=== PATIENT | female | born 1965 | race Caucasian/White ===

== ENCOUNTER 2025-05-14 13:44 | Emergency (ER) | payer BC, OTHER ==
[2025-05-14 16:24] LABS: Absolute Lymphocytes (CBC) 1.7 K/uL (0.7-4.9); Hematocrit 42.0 % (36.0-45.0); Hemoglobin 14.1 g/dL (12.0-15.0); MCH 28.9 pg (27.0-35.0); MCHC 33.5 g/dL (32.0-36.0); MCV 86.2 fL (80-100); MPV 8.2 fL (7.6-11.3); Nucleated RBC Absolute Count 0.0 (0-0); Nucleated Red Blood Cells % 0.0 % (0-0); RBC Red Blood Cell Count 4.88 M/uL (3.86-4.86); White Blood Count 7.20 thou/uL (4.3-10.9)
--- NOTE | 2025-05-14 16:35 | RAD REPORT ---
Extremity Venous Uni Ltd CLINICAL INDICATION: Female, 59 years old.PAIN TECHNIQUE: Complete duplex sonography of the lower extremity veins was performed of the affected limb . The examination included compression for vein patency, color Doppler imaging and flow augmentation in response to distal compression of the distal external iliac, common femoral, femoral, popliteal, peroneal, tibial and great saphenous veins. [id number]. COMPARISON: No prior exams FINDINGS: Duplex sonography imaging demonstrates all deep veins examined to be fully compressible with spontane ous, phasic and augmented flow in the affected limb. IMPRESSION: No evidence of deep venous thrombosis in the left lower extremity.
[2025-05-14 16:43] LABS: Anion Gap 8.2 mEq/L (5.0-15.0); BUN Blood Urea Nitrogen 21.0 mg/dL (7-18); Glucose Level 114.0 mg/dL (74-106); Potassium 4.2 mEq/L (3.5-5.1); Troponin High Sensitivity 3.1 pg/mL (<58.9)
[2025-05-14] MEDS ORDERED: NA CHLORIDE 0.9% 1,000 ML ONE (16:45)
--- NOTE | 2025-05-14 17:00 | RAD REPORT ---
EXAM: Chest Single View HISTORY: 59 years Female CHEST PAIN COMPARISON: No prior exams FINDINGS: LUNGS/PLEURA: The lungs are clear. No pleural effusions or pneumothorax. No pulmonary edema. CARDIAC/MEDIASTINUM: The cardiac silhouette is within normal limits. UPPER ABDOMEN: No significant abnormality. BONES: No acute abnormality. LINES/TUBES/OTHER: N/A IMPRESSION: No evidence of acute cardiopulmonary disease.
--- NOTE | 2025-05-14 17:20 | RAD REPORT ---
EXAMINATION: CTA CHEST PE CLINICAL INDICATION: Female, 59 years old. CHEST PAIN TECHNIQUE: This examination was performed according to an angiographic protocol with 3D post-processi ng. This involves 3D reconstructions, MIPs, volume rendered images and/or shaded surface rendering. One or more of the following dose reduction techniques were used: Automated exposure control, adjustm ent of the mA and/or kV according to patient size, and/or iterative reconstruction. Unless otherwise specified, incidental findings do not require dedicated imaging follow-up. [id number]. COMPARISON: Same day chest radiograph. FINDINGS: LOWER NECK: Visualized thyroid gland and soft tissues are normal. MEDIASTINUM AND LYMPH NODES: No mediastinal mass or fluid collection. Normal size mediastinal, hilar, and axillary lymph nodes. Diffuse esophageal wall thickening. THORACIC AORTA: No thoracic aortic aneurysm. PULMONARY ARTERIES: Caliber is within normal limits. No pulmonary emboli identified. HEART: Normal heart size. No coronary calcifications.No significant pericardial effusion. LUNGS AND AIRWAYS: No evidence of airspace or interstitial process. No suspicious and/or stable pulmo nary nodules. PLEURA: No pleural effusions. No pneumothorax. OSSEOUS STRUCTURES AND CHEST WALL: No fracture or suspicious osseous lesions. UPPER ABDOMEN: No acute abnormalities. IMPRESSION: Negative for pulmonary embolism. No other acute process identified in the chest.
--- NOTE | 2025-05-14 18:01 | EDPHYS ---
Physician Documentation [facility] Name: Rasheeda Boone Age: 59 yrs Sex: Female : 1965 Arrival Date: 05/14/2025 Time: 13:44 Bed 23 Private MD: ED Physician Caro Menezes HPI: 05/14 19:49 This 59 yrs old Female presents to ER via Ambulatory with complaints of Leg dr5 Pain. 19:49 The patient presents with pain. Onset: The symptoms/episode began/occurred acutely. dr5 Patient is a 59-year-old female with history of hypothyroidism and fibromyalgia coming in with left lower extremity/calf pain and swelling. Patient reports she had surgery on her right wrist 2 weeks ago. Patient reports intermittent chest pain but is concerned about her left leg. Patient denies shortness of breath, nausea, vomiting, or fever.. Historical: - Allergies: 14:24 Sulfa (Sulfonamide Antibiotics); dd2 14:24 Latex, Natural Rubber; dd2 - PMHx: 14:24 Hypothyroidism; Fibromyalgia; dd2 - PSHx: 14:24 RT THUMB SX; Cholecystectomy; dd2 - Immunization history:: Adult Immunizations up to date. - Infectious Disease History:: Denies. - Social history:: Smoking status: Patient denies any tobacco usage or history of. ROS: 19:49 Constitutional: as per hpi dr5 Exam: 19:49 Constitutional: This is a well developed, well nourished patient who is awake, alert, dr5 and in no acute distress. Head/Face: Normocephalic, atraumatic. Eyes: Pupils equal round and reactive to light, extra-ocular motions intact. Lids and lashes normal. Conjunctiva and sclera are non-icteric and not injected. Cornea within normal limits. Periorbital areas with no swelling, redness, or edema. Neck: Trachea midline, no thyromegaly or masses palpated, and no cervical lymphadenopathy. Supple, full range of motion without nuchal rigidity, or vertebral point tenderness. No Meningismus. Chest/axilla: Normal chest wall appearance and motion. Nontender with no deformity. No lesions are appreciated. Cardiovascular: Regular rate and rhythm with a normal S1 and S2. Normal PMI, no JVD. No pulse deficits. Respiratory: Lungs have equal breath sounds bilaterally, clear to auscultation. No rales, rhonchi or wheezes noted. No increased work of breathing, no retractions or nasal flaring. Back: No spinal tenderness. No costovertebral tenderness. Full range of motion. Skin: Warm, dry with normal turgor. Normal color with no rashes, no lesions, and no evidence of cellulitis. MS/ Extremity: Pulses equal, no cyanosis. Neurovascular intact. Full, normal range of motion. Mild swelling noted to left lower extremity with no tenderness to palpation. Neurovascular intact. Neuro: Awake and alert, GCS 15, oriented to person, place, time, and situation. Cranial nerves II-XII grossly intact. Motor strength 5/5 in all extremities. Sensory grossly intact. Cerebellar exam normal. Normal gait. 19:52 Neuro: Exam negative for acute changes, dr5 Vital Signs: 14:19 BP 115 / 81; Pulse 79; Resp 16; Temp 97.8; Pulse Ox 98% on R/A; Weight 78.93 kg; Height dd2 5 ft. 7 in. ; Pain 4/10; 16:10 BP 121 / 73; Pulse 77; Resp 16; Pulse Ox 96% on R/A; jb4 17:13 BP 127 / 75; Pulse 72; Resp 16; Pulse Ox 100% on R/A; jb4 18:13 BP 136 / 84; Pulse 70; Resp 16; Pulse Ox 100% on R/A; jb4 14:19 Body Mass Index 27.25 (78.93 kg, 170.18 cm) dd2 14:19 Pain Scale: Adult dd2 MDM: 13:52 Medical Screening Exam initiated dr5 19:49 Differential diagnosis: contusion, abrasion, tendonitis, PE, DVT, NSTEMI, sciatic nerve dr5 pain, muscle strain. Data reviewed: vital signs, nurses notes, lab test result(s), cardiac enzymes, troponin i, CBC, white blood cell count, hemoglobin, hematocrit, platelets, electrolytes, sodium, potassium, chloride, serum bicarbonate, BUN, creatinine, serum glucose, EKG, radiologic studies, CT scan, plain films. Consideration of Admission/Observation Escalation of care including admission/observation considered. Escalation considered patient found to have PE with right heart strain. I considered the following discharge prescriptions or medication management in the emergency department I discussed and recommended Over The Counter medications, Medications were administered in the Emergency Department. See MAR. Independent interpretation of the following test(s) in the Emergency Department X-Ray: My interpretation is Independent interpretation of x-ray does not reveal pneumonia. Historians other than the Patient: Spouse/Significant Other: . Care significantly affected by the following chronic conditions: Fibromyalgia, hypothyroidism. Care significantly affected by the following Social Determinants of Health: Poor access to healthcare and/or lack of insurance, Poor access to transportation, Problems related to employment. Scoring Tools PERC Rule for PE Age >/= 50 Yes HR >/= 100 No O2 Sat Room Air < 95% No Unilateral leg swelling Yes Hemoptysis No Recent surgery or trauma </= 4 wks ago requiring treatment with general anesthesia Yes Prior PE or DVT No Hormone use (Oral contraceptives, hormone replacement or estrogenic hormones use in males or female patients No. Counseling: I had a detailed discussion with the patient and/or guardian regarding the historical points, exam findings, and any diagnostic results supporting the discharge/admit diagnosis, the presence of at least one elevated blood pressure reading (>120/80) during this emergency department visit, lab results, radiology results, the need for outpatient follow up, for definitive care, a family practitioner, to return to the emergency department if symptoms worsen or persist or if there are any questions or concerns that arise at home. Special discussion: Based on the patient's history, exam, and Dx evaluation, there is no indication for emergent intervention or inpatient Tx. It is understood by the patient/guardian that if the Sx's persist or worsen they need to return immediately for re-evaluation. I discussed with the patient/guardian in detail that at this point there is no indication for admission to the hospital. It is understood, however, that if the symptoms persist or worsen the patient needs to return immediately for re-evaluation. Based on the history and exam findings, there is no indication for further emergent testing or inpatient evaluation. I discussed with the patient/guardian the need to see the primary care provider for further evaluation of the symptoms. ED course: No DVT or PE noted. Will treat patient for muscle strain. All questions answered. All labs and diagnostics were printed and given to patient. Strict ER precautions given.. 05/14 16:20 Order name: Basic Metabolic Panel; Complete Time: 16:55 EDMS 05/14 16:20 Order name: Troponin High Sensitivity; Complete Time: 16:55 EDMS 05/14 16:20 Order name: CBC with Automated Diff; Complete Time: 17:31 EDMS 05/14 15:47 Order name: XRAY Chest (1 view); Complete Time: 17:13 [facility] 05/14 15:47 Order name: CT Chest For PE Angio; Complete Time: 17:31 [facility] 05/14 16:01 Order name: Extremity Venous Uni Ltd; Complete Time: 16:38 [facility] 05/14 15:47 Order name: Cardiac monitoring; Complete Time: 15:58 [facility] 05/14 15:47 Order name: EKG - Nurse/Tech; Complete Time: 15:58 [facility] 05/14 15:47 Order name: IV Saline Lock; Complete Time: 16:10 [facility] 05/14 15:47 Order name: Labs collected and sent; Complete Time: 16:10 [facility] 05/14 15:47 Order name: O2 Per Protocol; Complete Time: 15:58 [facility] 05/14 15:47 Order name: O2 Sat Monitoring; Complete Time: 15:58 dr5 EC:52 Rate is 71 beats/min. Rhythm is regular. QRS [place] is Normal. IN interval is normal at dr5 168 msec. QRS interval is normal at 78 msec. QT interval is normal at 374 msec. Clinical impression: Normal ECG and No evidence of ischemia. Administered Medications: 16:10 Not Given (Patient Refused): morphineor iv 4 mg IVP once over 4 mins jb4 16:10 Not Given (Patient Refused): ondansetron 4 mg IVP once; over 2 minutes jb4 16:45 Drug: NS 0.9% IV 1000 ml IV at 1000 ml once; to be given as a bolus over 60 minutes jb4 Route: IV; Rate: 1000 ml; Site: right antecubital; 17:30 Follow up: Response: No adverse reaction; IV Status: Pt wanted to D/c infusion and IV; jb4 IV Intake: 600ml Disposition: 19:17 Co-signature as Attending Physician, Caro Menezes MD I reviewed the patient's care gb1 provided by the Advanced Practice Provider and agree with the diagnosis and treatment plan. Disposition Summary: 05/14/25 18:01 Discharge Ordered Notes: Location: Home dr5 Condition: Stable dr5 Diagnosis - Pain in left leg dr5 Followup: dr5 - With: Emergency Department - When: As needed - Reason: Worsening of condition Followup: dr5 - With: Private Physician - When: 1 - 2 days - Reason: Recheck today's complaints, Continuance of care, Re-evaluation by your physician Discharge Instructions: - Discharge Summary Sheet dr5 - Musculoskeletal Pain dr5 Forms: - Medication Reconciliation Form dr5 - Prescription Opioid Use dr5 - Patient Portal Instructions dr5 - Leadership Thank You Letter dr5 Prescriptions: - gabapentin 300 mg Oral capsule - take 1 capsule ORAL route daily for 30 days; 30 capsule; Refills: 0, Product dr5 Selection Permitted - Cyclobenzaprine 10 mg Oral Tablet - take 1 tablet ORAL route every 8 hours As needed; 30 tablet; Refills: 0, dr5 Product Selection Permitted - Tramadol 50 mg Oral Tablet - take 1 tablet ORAL route every 8 hours as needed; 12 tablet; Refills: 0, dr5 Product Selection Permitted - Medrol (Enrique) 4 mg Oral Tablets, Dose Pack - take 1 tablet ORAL route as directed - follow package instructions; 1 packet; dr5 Refills: 0, Product Selection Permitted Signatures: Dispatcher [employer] EDMiguelito Nugent RN RN jb4 Caro Menezes MD MD gb1 JUNIOR CARLOS RN RN dd2 Cristhian Ng, PREFLIGHT INSPECTOR-C PREFLIGHT INSPECTOR-Cdr5 Corrections: (The following items were deleted from the chart) 15:48 15:48 Chest For PE Angio+CT.RAD.BRZ ordered. EDMS EDMS 15:48 15:48 Extremity Venous Uni Ltd+US.RAD.BRZ ordered. EDMS EDMS
--- NOTE | 2025-05-14 18:01 | ER ---
Nurse's Notes [facility] Name: Rasheeda Boone Age: 59 yrs Sex: Female : 1965 Arrival Date: 05/14/2025 Time: 13:44 Bed 23 Private MD: Diagnosis: Pain in left leg Presentation: 05/14 14:19 Chief complaint: Patient states: LT CALF NUMBNESS FOR 2 WEEKS, BECAME PAINFUL LAST dd2 NIGHT. Coronavirus screen: At this time, the client does not indicate any symptoms associated with coronavirus-19. Ebola Screen: No symptoms or risks identified at this time. Initial Sepsis Screen: Does the patient meet any 2 criteria? No. Patient's initial sepsis screen is negative. Does the patient have a suspected source of infection? No. Patient's initial sepsis screen is negative. Risk Assessment: Do you want to hurt yourself or someone else? Patient reports no desire to harm self or others. Onset of symptoms was April 30, 2025. 14:19 Method Of Arrival: Ambulatory dd2 14:19 Acuity: KELLY 3 dd2 Triage Assessment: 14:24 General: Appears uncomfortable, Behavior is calm, cooperative, appropriate for age. dd2 Pain: Complains of pain in lateral aspect of left calf Pain currently is 4 out of 10 on a pain scale. Musculoskeletal: Circulation, motion, and sensation intact. Range of motion: intact in all extremities, Reports pain in lateral aspect of left calf. Historical: - Allergies: 14:24 Sulfa (Sulfonamide Antibiotics); dd2 14:24 Latex, Natural Rubber; dd2 - PMHx: 14:24 Hypothyroidism; Fibromyalgia; dd2 - PSHx: 14:24 RT THUMB SX; Cholecystectomy; dd2 - Immunization history:: Adult Immunizations up to date. - Infectious Disease History:: Denies. - Social history:: Smoking status: Patient denies any tobacco usage or history of. Screenin:45 [facility] ED Fall Risk Assessment (Adult) History of falling in the last 3 months, jb4 including since admission No falls in past 3 months (0 pts) Confusion or Disorientation No (0 pts) Intoxicated or Sedated No (0 pts) Impaired Gait No (0 pts) Mobility Assist Device Used No (0 pt) Altered Elimination No (0 pt) Score/Fall Risk Level 0 - 2 = Low Risk Oriented to surroundings, Maintained a safe environment. Abuse screen: Denies threats or abuse. Nutritional screening: No deficits noted. Tuberculosis screening: No symptoms or risk factors identified. Assessment: 15:45 General: Appears in no apparent distress. comfortable, Behavior is calm, cooperative, jb4 appropriate for age. Pain: Complains of pain in posterior aspect of left knee and left calf Pain does not radiate. Pain currently is 4 out of 10 on a pain scale. at worst was 8 out of 10 on a pain scale. Pain began 1 day ago. Is intermittent, Aggravated by increased activity. Neuro: Level of Consciousness is awake, alert, obeys commands, Oriented to person, place, time, situation. Cardiovascular: Patient's skin is warm and dry. Respiratory: Airway is patent Respiratory effort is even, unlabored, Respiratory pattern is regular, symmetrical. Derm: Skin is intact, Skin is. Musculoskeletal: Circulation, motion, and sensation intact. Range of motion: intact in all extremities. 17:04 Reassessment: Patient appears in no apparent distress at this time. Patient and/or jb4 family updated on plan of care and expected duration. Pain level reassessed. Patient is alert, oriented x 3, equal unlabored respirations, skin warm/dry/pink. 18:13 Reassessment: Patient appears in no apparent distress at this time. Patient and/or jb4 family updated on plan of care and expected duration. Pain level reassessed. Patient is alert, oriented x 3, equal unlabored respirations, skin warm/dry/pink. Vital Signs: 14:19 BP 115 / 81; Pulse 79; Resp 16; Temp 97.8; Pulse Ox 98% on R/A; Weight 78.93 kg; Height dd2 5 ft. 7 in. ; Pain 4/10; 16:10 BP 121 / 73; Pulse 77; Resp 16; Pulse Ox 96% on R/A; jb4 17:13 BP 127 / 75; Pulse 72; Resp 16; Pulse Ox 100% on R/A; jb4 18:13 BP 136 / 84; Pulse 70; Resp 16; Pulse Ox 100% on R/A; jb4 14:19 Body Mass Index 27.25 (78.93 kg, 170.18 cm) dd2 14:19 Pain Scale: Adult dd2 ED Course: 13:48 Patient arrived in ED. cj3 13:52 Cristhian Ng FNP-C is PSYCHIATRICP. dr5 13:52 Caro Menezes MD is Attending Physician. dr5 14:24 Triage completed. dd2 14:24 Arm band placed on left wrist. dd2 15:38 Miguelito Patton, RN is Primary Nurse. jb4 15:45 Patient has correct armband on for positive identification. Bed in low position. Call jb4 light in reach. Side rails up X 1. Provided Education on: plan of care. 15:45 No provider procedures requiring assistance completed. jb4 15:58 EKG done, by manager technical support. reviewed by Cristhian COON. ts3 16:10 Basic Metabolic Panel Sent. jb4 16:10 CBC with Diff Sent. jb4 16:10 Troponin HS Sent. jb4 16:10 XRAY Chest (1 view) Sent. jb4 16:31 Extremity Venous Uni Ltd In Process Unspecified. EDMS 16:56 XRAY Chest (1 view) In Process Unspecified. EDMS 17:14 CT Chest For PE Angio In Process Unspecified. EDMS 18:13 IV discontinued, intact, bleeding controlled, No redness/swelling at site. Pressure jb4 dressing applied. Administered Medications: 16:10 Not Given (Patient Refused): morphineor iv 4 mg IVP once over 4 mins jb4 16:10 Not Given (Patient Refused): ondansetron 4 mg IVP once; over 2 minutes jb4 16:45 Drug: NS 0.9% IV 1000 ml IV at 1000 ml once; to be given as a bolus over 60 minutes jb4 Route: IV; Rate: 1000 ml; Site: right antecubital; 17:30 Follow up: Response: No adverse reaction; IV Status: Pt wanted to D/c infusion and IV; jb4 IV Intake: 600ml Medication: 15:45 VIS not applicable for this client. jb4 Intake: 17:30 IV: 600ml; Total: 600ml. jb4 Outcome: 18:01 Discharge ordered by . dr5 18:13 Discharged to home ambulatory, jb4 18:13 Condition: stable 18:13 Discharge instructions given to patient, family, Instructed on discharge instructions, follow up and referral plans. no drinking with medication, no driving heavy equipment, medication usage, Demonstrated understanding of instructions, follow-up care, medications, Prescriptions given X 4, 18:14 Patient left the ED. jb4 Signatures: Dispatcher [employer] EDMiguelito Nugent RN RN jb4 JUNIOR CARLOS RN RN dd2 Cristhian Ng, CUSTOMS BROKERAGE MANAGER-C CUSTOMS BROKERAGE MANAGER-Cdr5 Jeri Holliday cj3 Elizabeth Del Rosario ts3
[2025-05-14 18:30] VITALS: BP 136/84; TEMP 97.8; O2SAT 100
== END 2025-05-14 18:14 | disposition home or self-care (01) ==
LOC: ER 13:44
DX: M79.662 Pain in left lower leg (principal); R07.9 Chest pain, unspecified
CPT/HCPCS: 93005; 85025; 80048; 36415; 84484; 71275; 71045; 93971; 96360; 99284; J7030